=== PATIENT | female | born 1990 ===

== ENCOUNTER 2022-07-01 12:21 | Outpatient (CLI) | payer OTHER | END 2022-07-01 14:15 | disposition home or self-care (01) | LOC: PRENATAL 12:21 | PROVIDERS: ATTEND Obstetrics & Gynecology Maternal & Fetal Medicine | DX: O35.9XX0 Maternal care for (suspected) fetal abnormality and damage, unspecified, not applicable or unspecified (principal); O35.3XX0 Maternal care for (suspected) damage to fetus from viral disease in mother, not applicable or unspecified; O34.219 Maternal care for unspecified type scar from previous cesarean delivery; Z3A.19 19 weeks gestation of pregnancy ==

== ENCOUNTER 2022-09-26 14:01 | Outpatient (CLI) | payer OTHER | END 2022-09-26 16:54 | disposition home or self-care (01) | LOC: PRENATAL 14:01 | PROVIDERS: ATTEND Obstetrics & Gynecology Maternal & Fetal Medicine | DX: O26.849 Uterine size-date discrepancy, unspecified trimester (principal); O36.8199 Decreased fetal movements, unspecified trimester, other fetus; O34.219 Maternal care for unspecified type scar from previous cesarean delivery; Z3A.32 32 weeks gestation of pregnancy ==